=== PATIENT | female | born 1965 | race Two or more races ===

== ENCOUNTER 2019-07-10 20:27 | Emergency (ER) | payer MEDICARE, MEDICAID ==
[~2019-07-10] VITALS: Ht 167.6 cm; Wt 100.0 kg
--- NOTE | 2019-07-10 20:39 | NUR ---
DAYRN BUI FROM THE [facility], PT ON VACATION. C/O SEVERE ABD PAIN, DESCRIBED AT SHARP PAIN RADIATING TO LEFT SIDE. HX MULTIPLE ABD SURGERIES. PT CONNECTED TO MONITORING. CALL LIGHT IN REACH. FAMILY AT BEDSIDE.
--- NOTE | 2019-07-10 20:52 | NUR ---
PT HYPOXIC ON RA, PT PLACED ON 2LNC AT THIS TIME.
--- NOTE | 2019-07-10 21:14 | NUR ---
PT AMBULATED TO RESTROOM WITH STEADY GAIT USING HER CANE TO PROVIDE A URINE SAMPLE. UA COLLECTED AND SENT TO LAB.
--- NOTE | 2019-07-10 21:22 | NUR ---
PT IS ALLERGIC TO MORPHINE, BUT HAS HAD NO REACTION TO DILAUDID, SHE HAS TAKEN IT BEFORE.
[2019-07-10] MEDS ORDERED: HYDROmorphone 1 MG/ML, 1ML VIAL ONE ×2 (21:26→22:36)
[2019-07-10] MEDS ORDERED: ONDANSETRON 2MG/ML, 2ML ONE (21:27)
[2019-07-10] MEDS ORDERED: SODIUM CHLORIDE FLUSH 10ML SYR IVF ONE (21:30)
[2019-07-10] MEDS ORDERED: PLEASE ENTER ALLERGIES MC SCH (21:30)
[2019-07-10] MEDS ORDERED: ONDANSETRON 2MG/ML, 2ML IVPush ONE (21:30)
[2019-07-10] MEDS: HYDROmorphone 2 MG/ML, 1ML IVPush PRN ×2 (21:30→22:39)
[2019-07-10 21:32] LABS: MICROSCOPIC NOT IND
--- NOTE | 2019-07-10 21:32 | NUR ---
MEDS ADMINISTERED PER NOV. PT RESTING ON Rupture WATCHING TV.
[2019-07-10 21:35] LABS: CULTURE INDICATED? NO
[2019-07-10 21:47] LABS: ANION GAP 7 mmol/L (5-15); CALCIUM 8.4 mg/dL (8.5-10.1); CHLORIDE 104 mmol/L (98-107); CREATININE 1.03 mg/dL (0.55-1.02)
[2019-07-10 21:52] LABS: MD YES; MEAN CORPUSCULAR HEMOGLOBIN 28.9 pg (27.0-34.8); MEAN CORPUSCULAR HGB CONC 32.3 g/dL (32.4-35.8); MEAN CORPUSCULAR VOLUME 89.6 fL (80-100); MEAN PLATELET VOLUME 8.9 fL (7.4-10.4); PLATELET COUNT 263 x10^3/uL (130-400); RED BLOOD COUNT 4.32 x10^6/uL (3.82-5.3); RED CELL DISTRIBUTION WIDTH 16.6 % (9.6-15.2)
[2019-07-10 21:57] LABS: ALANINE AMINOTRANSFERASE 61 U/L (12-78); ALKALINE PHOSPHATASE 66 U/L (45-117); BILIRUBIN,TOTAL 0.2 mg/dL (0.2-1.0); LYMPH#(MANUAL) 3.22 x10^3/uL (1-3.4); LYMPHS% (MANUAL) 48 % (22-44); MONOS#(MANUAL) 0.13 x10^3/uL (0.3-2.7); MONOS% (MANUAL) 2 % (2-9); SEG#(MANUAL) 3.35 x10^3/uL (1.8-6.8); SEGS% (MANUAL) 50 % (42-75); TOTAL PROTEIN 7.3 g/dL (6.4-8.2)
[2019-07-10 21:58] LABS: TARGET CELLS 1+
[2019-07-10 22:00] LABS: ANISOCYTOSIS 1+
[2019-07-10 22:01] LABS: <PLATELET ESTIMATE> ADEQUATE; <PLT MORPHOLOGY> NORMAL PLT MORPH
--- NOTE | 2019-07-10 22:08 | NUR ---
PT RETURNED FROM CT.
--- NOTE | 2019-07-10 22:40 | NUR ---
PRN PAIN MED ADMINISTERED PER NOV FOR 03/16 PAIN. PT RESTING WATCHING TV. NADN.
--- NOTE | 2019-07-10 22:55 | NUR ---
ALL RESULTS ARE BACK AT THIS TIME. CHART UP FOR RECHECK.
[2019-07-10 23:26] VITALS: BP 122/72
[2019-07-10] MEDS ORDERED: OMNIPAQUE 350 MG/ML, 100ML BOTTLE ONE (23:34)
== END 2019-07-10 23:29 | disposition home or self-care (01) ==
LOC: ED 23:23
DX: R10.33 Periumbilical pain (principal); R10.32 Left lower quadrant pain; R10.12 Left upper quadrant pain; I10 Essential (primary) hypertension; E11.9 Type 2 diabetes mellitus without complications
CPT/HCPCS: 36415; 74177; 80053; 81003; 83690; 85025; 96374; 96375; 96376; 99284; J1170; J2405; Q9967